=== PATIENT | female | born 1965 | race Hispanic/Latino ===

== ENCOUNTER → 2017-07-21 | Outpatient (CLI) | payer OTHER ==
[~2017-07-21] MED LIST: EXCEDRIN MIGRA1 EAC3 PO; LEVAQUIN500 MG PO; [UNRECOGNIZED DRUG - OTHER] PO
--- NOTE | 2017-07-21 16:38 | Diagnostic Imaging Report ---
PROCEDURE:US RETROPERITONEAL ( KIDNEY ). COMPARISON:None. INDICATIONS:UTI, Asymptomatic Microscopic Hematuria TECHNIQUE: Fernando-scale and color sonographic images of the bilateral kidneys and bladder where obtained in transverse and longitudinal planes. FINDINGS: RIGHT KIDNEY: 9.5 cm, cortex 1.2 cm Cysts: None Solid masses: None Stones: None Hydronephrosis: None Echogenicity: Normal LEFT KIDNEY: 9.7 cm, cortex 2.29 cm Cysts: None Solid masses: None Stones: None Hydronephrosis: None Echogenicity: Normal Bladder: No focal lesions. Bilateral ureteral jets identified. Incidental note is made of increase echogenicity of the visualized hepatic parenchyma CONCLUSION: 1. Unremarkable renal ultrasound. Bladder is unremarkable. 2. Hepatic steatosis. Ajit Melo M.D. Dictated by: Ajit Melo M.D. on 07/21/2017 at 16:39 Electronically approved by: Ajit Melo M.D. on 07/21/2017 at 16:39
== END ==
LOC: US 13:58
PROVIDERS: ATTEND Urology
DX: N39.0 Urinary tract infection, site not specified (principal); R31.9 Hematuria, unspecified
CPT/HCPCS: 76770

== ENCOUNTER → 2017-07-29 | Day surgery (SDC) | payer OTHER ==
[~2017-07-29] MED LIST changes: +CEFTRIAXONE SOD 1 GM VIAL ONE; +DEXAMETHASONE SOD PHOS INJ 4 MG/ML VIAL ONE; +IOPAMIDOL 610MG/1ML 300 MG/ML VIAL IV ONE; +LIDOCAINE HCL 2% LOCAL INJ 5 ML SDV VIAL INJ ONE; +ONDANSETRON HCL INJ 2 MG/ML VIAL ONE; +PROPOFOL IV EMULSION 10 MG/ML 20 ML VIAL ONE; +SCOPOLAMINE 1.5 MG PATCH ONE; +SEVOFLURANE INHAL SOLN 250 ML PEN BTL ONE
--- OUTSIDE RECORDS SUMMARY | 2017-07-29 05:11 | XMS REPORT ---
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 Allergies, Adverse Reactions, Alerts This patient has no known allergies or adverse reactions. Medications This patient has no known medications. Results Test Description Test Time Test Comments Text Results Atomic Results Result Comments US RENAL RETROPERITONEAL COMP [place] [address] Patient Name: JOSE REED V MR #: [id number] : 1965 Age/Sex: 51/F Req #: [id number] Adm Physician: Ordered by: MARIO MAGUIRE MD Report #: [id number] Location: Room/Bed: Procedure: [id number] US/US RENAL RETROPERITONEAL COMP Exam Date: 07/21/17 Exam Time: 1438 REPORT STATUS: Signed PROCEDURE : US RETROPERITONEAL ( KIDNEY ). COMPARISON: None. INDICATIONS: UTI, Asymptomatic Microscopic Hematuria TECHNIQUE: Fernando-scale and color sonographic images of the bilateral kidneys and bladder where obtained in transverse and longitudinal planes. FINDINGS: RIGHT KIDNEY: 9.5 cm, cortex 1.2 cm Cysts: None Solid masses: None Stones: None Hydronephrosis: None Echogenicity: Normal LEFT KIDNEY: 9.7 cm, cortex 2.29 cm Cysts: None Solid masses: None Stones: None Hydronephrosis: None Echogenicity: Normal Bladder: No focal lesions. Bilateral ureteral jets identified. Incidental note is made of increase echogenicity of the visualized hepatic parenchyma CONCLUSION: 1. Unremarkable renal ultrasound. Bladder is unremarkable. 2. Hepatic steatosis. Curt Melo M.D. Dictated by: Curt Melo M.D. on 07/21/2017 at 16:39 Electronically approved by: Curt Melo M.D. on 2017 at 16:39 Dictated By: CURT MELO MD 1639 Transcribed By: NOEL on 1639 COPY TO: MARIO MAGUIRE MD
--- NOTE | 2017-07-29 13:14 | Operative Report ---
DATE OF PROCEDURE: July 29, 2017 PREOPERATIVE DIAGNOSES 1. Multiple chronic urinary tract infections. 2. Microscopic hematuria. 3. Clinical signs and symptoms of interstitial cystitis. POSTOPERATIVE DIAGNOSES 1. Multiple chronic urinary tract infections. 2. Microscopic hematuria. 3. Clinical signs and symptoms of interstitial cystitis. 4. Urethral stricture disease. PROCEDURES 1. Cystourethroscopy with calibration and dilation of urethral stricture (entirely separate procedure for the diagnosis of urethral stricture disease). 2. Cystourethroscopy with hydrodistention (entirely separate procedure for the clinical signs and symptoms of interstitial cystitis without hematuria). 3. Cystourethroscopy with left ureteral catheterization and left retrograde pyelogram (entirely separate procedure for diagnosis of multiple chronic urinary tract infections). 4. Cystourethroscopy with right ureteral catheterization and right retrograde pyelogram (entirely separate procedure for diagnosis of multiple chronic urinary tract infections). 5. Supervision of fluoroscopy. 6. Interpretation of retrograde ureteropyelography. ANESTHESIA: General. ESTIMATED BLOOD LOSS: Minimal. COMPLICATIONS: None. INDICATIONS FOR PROCEDURE: Ms. Mc is a very pleasant, 51-year-old female who has had multiple chronic urinary tract infections as well as microscopic hematuria. She and I had a long discussion regarding the alternatives, risks and benefits, including doing nothing, cystoscopy, IVP, retrograde pyelogram or ultrasound due to the complicated nature, also the ruling out of interstitial cystitis. She voiced an understanding of the options and the alternatives, and she elected to proceed. PROCEDURE IN DETAIL: After informed consent was obtained, the patient was taken to the operating suite. She was placed supine on the operating table. She underwent general anesthesia by the anesthesia service. She was placed in the dorsal lithotomy position. She was sterilely prepped and draped in the standard fashion for cystoscopy. There was a grade-2 cystocele noted and normal-appearing vaginal mucosa. No masses. The urethra attempted to be catheterized with a 22.5-Vincentian cystoscope. This failed. The urethra was calibrated to 14 Vincentian. It was dilated to 24 Vincentian. The cystoscope was then reintroduced. Panendoscopy of the bladder revealed some squamous metaplasia. No tumors and no stones. Both ureteral orifices were in their normal anatomic location and position and were seen to efflux clear urine. Hydrodistention was performed, which revealed a capacity of 800 mL. No glomerulations. No Hunner ulcers. Bilateral retrograde pyelograms were performed, which were normal. The bladder was then drained. The patient was awakened from anesthesia and transported to the recovery room in excellent condition. SUPERVISION OF FLUOROSCOPY AND INTERPRETATION OF RETROGRADE PYELOGRAPHY: I was present throughout the entire procedure and supervised the use of fluoroscopy. There was no radiologist present. Attention was turned toward the left and right ureteral orifices, which were catheterized with an 8-Vincentian, cone-tip catheter in a retrograde fashion. Contrast was injected revealing delicate ureters and delicate pelvicaliceal systems. No evidence of filling defects. No evidence of hydronephrosis. IMPRESSION: Normal retrograde pyelograms. Job#: [id number] cc:SARA [address] DO
== END | disposition home or self-care (01) ==
LOC: OR 05:09
PROVIDERS: ATTEND Urology
DX: N39.0 Urinary tract infection, site not specified (principal); R31.0 Gross hematuria; N35.9 Urethral stricture, unspecified; N81.10 Cystocele, unspecified
CPT/HCPCS: 52281; 74420; 93005; C1758; J0696; J1100; J2001; J2405; Q9967

== ENCOUNTER 2020-04-28 18:38 | Emergency (ER) | payer OTHER ==
[~2020-04-28] VITALS: Ht 157.5 cm; Wt 59.0 kg
[~2020-04-28 18:38] MED LIST changes: -CEFTRIAXONE SOD 1 GM VIAL ONE; -DEXAMETHASONE SOD PHOS INJ 4 MG/ML VIAL ONE; -IOPAMIDOL 610MG/1ML 300 MG/ML VIAL IV ONE; -LIDOCAINE HCL 2% LOCAL INJ 5 ML SDV VIAL INJ ONE; -ONDANSETRON HCL INJ 2 MG/ML VIAL ONE; -PROPOFOL IV EMULSION 10 MG/ML 20 ML VIAL ONE; -SCOPOLAMINE 1.5 MG PATCH ONE; -SEVOFLURANE INHAL SOLN 250 ML PEN BTL ONE
[2020-04-28] MEDS ORDERED: KETOROLAC TROMETHAMINE 30 MG/ML VIAL IV STA (21:42)
[2020-04-28] MEDS ORDERED: SODIUM CHLORIDE 0.9% 1000ML 1,000 ML IV STA (21:42)
[2020-04-28] MEDS ORDERED: SODIUM CHLORIDE FLUSH 10 ML SYR INJ PRN (21:45)
[2020-04-28] MEDS ORDERED: SODIUM CHLORIDE 0.9% 50ML 50 ML ONE (22:09)
[2020-04-28] MEDS ORDERED: IOPAMIDOL 370 MG/ML 200 ML INFUS..BTL INJ ONE (22:09)
[2020-04-28] MEDS ORDERED: SODIUM CHLORIDE 0.9% 1000ML 1,000 ML ONE (22:11)
[2020-04-28] MEDS ORDERED: KETOROLAC TROMETHAMINE 30 MG/ML VIAL ONE (22:11)
[2020-04-28] MEDS ORDERED: CEFTRIAXONE SOD 1 GM/NS 50 ML 50 ML IV ONE ×2 (22:30→22:57)
[2020-04-28] MEDS ORDERED: CIPRO500 MG PO (23:31)
[2020-04-28] MEDS ORDERED: PREDNISONE20 MG PO (23:37)
[2020-04-28] MEDS ORDERED: METHYLPREDNISOLONE SOD SUCC 125 MG/2ML VIAL IV ONE (23:45)
[2020-04-28] MEDS ORDERED: METHYLPREDNISOLONE SOD SUCC 125 MG/2ML VIAL ONE (23:51)
== END 2020-04-28 23:59 | disposition home or self-care (01) ==
LOC: FSED 19:12
DX: N12 Tubulo-interstitial nephritis, not specified as acute or chronic (principal); R11.2 Nausea with vomiting, unspecified; Z87.891 Personal history of nicotine dependence
CPT/HCPCS: 74177; 80048; 80076; 81003; 85025; 87086; 99284; J0696; J1885; J2930; J7030; Q9967

== ENCOUNTER 2024-01-30 18:36 | Observation (INO) | payer OTHER ==
[2024-01-30] VITALS (7 sets, daily range): BP systolic 112–144; BP diastolic 52–85; PULSE 58–66; RESP 16–18; TEMP 97.8–98.4; O2SAT 100
[~2024-01-30] VITALS: Ht 157.5 cm; Wt 68.0 kg
[~2024-01-30 18:36] MED LIST changes: +CIPRO500 MG PO; +PREDNISONE20 MG PO
[2024-01-30 19:09] LABS: BASOPHILS # (AUTO) 0.1 (0.0-0.1); EOSINOPHILS # (AUTO) 0.2 (0.0-0.4); EOSINOPHILS % 2.1 % (0.0-6.0); HEMATOCRIT 42.1 % (34.2-44.1); HEMOGLOBIN 13.7 g/dL (12.0-16.0); MEAN CORPUSCULAR HEMOGLOBIN 30.2 pg (28-32); MEAN CORPUSCULAR HGB CONC 32.5 g/dL (31-35); MEAN CORPUSCULAR VOLUME 92.9 fL (81-99); MONOCYTES # (AUTO) 0.6 (0.2-0.8); MONOCYTES % 7.9 % (4.4-11.3); NEUTROPHILS # (AUTO) 4.4 (2.1-6.9); NEUTROPHILS % 60.9 % (38.7-80.0); PLATELET COUNT 198 x10e3/uL (140-360); RED BLOOD COUNT 4.53 x10e6/uL (3.6-5.1); RED CELL DISTRIBUTION WIDTH 11.9 % (11.7-14.4); WHITE BLOOD COUNT 7.22 x10e3/uL (4.8-10.8)
[2024-01-30] MEDS: ONDANSETRON HCL INJ 2MG/ML 2ML 2 MG/ML VIAL IV STA ×2 (19:24→21:14)
[2024-01-30 19:28] LABS: ALANINE AMINOTRANSFERASE 24 IU/L (0-55); ALBUMIN 4.3 g/dL (3.5-5.0); ALBUMIN/GLOBULIN RATIO 1.2 (0.8-2.0); ALKALINE PHOSPHATASE 94 IU/L (40-150); ANION GAP 16.7 mmol/L (8-16); BILIRUBIN,TOTAL 0.6 mg/dL (0.2-1.2); BLOOD UREA NITROGEN 23 mg/dL (7-26); BUN/CREATININE RATIO 25 (6-25); CALCIUM 9.6 mg/dL (8.4-10.2); CARBON DIOXIDE 20 mmol/L (22-29); CHLORIDE 108 mmol/L (98-107); CREATINE KINASE 114 IU/L (29-168); CREATININE, SERUM 0.92 mg/dL (0.57-1.11); EST GLOMERULAR FILTRATION RATE 71 ML/MIN (>=60); GLUCOSE 142 mg/dL (74-118); POTASSIUM 3.7 mmol/L (3.5-5.1); SODIUM 141 mmol/L (136-145)
[2024-01-30 19:35] LABS: TROPONIN I < 0.001 ng/mL (0-0.300)
[2024-01-30] MEDS: SODIUM CHLORIDE 0.9% 1000ML 1,000 ML IV ONE (21:13)
[2024-01-30] MEDS: KETOROLAC TROMETHAMINE 30 MG/ML VIAL IV STA (21:14)
[2024-01-30] MEDS ORDERED: KETOROLAC TROMETHAMINE 30 MG/ML VIAL ONE (21:14)
[2024-01-30] MEDS ORDERED: SODIUM CHLORIDE FLUSH 10 ML SYR INJ PRN (21:15)
[2024-01-30] MEDS ORDERED: SODIUM CHLORIDE 0.9% 100 ML ONE (22:02)
[2024-01-30] MEDS ORDERED: IOPAMIDOL 370 MG/ML 100 ML INFUS..BTL INJ ONE (22:02)
[2024-01-30] MEDS: SODIUM CHLORIDE 0.9% 1000ML 1,000 ML IV SCH (22:23)
[2024-01-30] MEDS ORDERED: NURTEC ODT75 MG (23:10)
[2024-01-30] MEDS ORDERED: PROPRANOLOL HCL80 MG PO (23:14)
[2024-01-30] MEDS ORDERED: CELEBREX200 MG PO (23:14)
[2024-01-31] VITALS (7 sets, daily range): BP systolic 105–116; BP diastolic 53–66; PULSE 58–66; RESP 16–18; TEMP 98–98.3; O2SAT 96–100
[2024-01-31] MEDS ORDERED: ONDANSETRON HCL INJ 2MG/ML 2ML 2 MG/ML VIAL IV PRN (01:00)
[2024-01-31 06:08] LABS: BASOPHILS % 0.5 % (0.0-1.0); EOSINOPHILS # (AUTO) 0.1 (0.0-0.4); HEMATOCRIT 38.1 % (34.2-44.1); HEMOGLOBIN 11.8 g/dL (12.0-16.0); LYMPHOCYTES # (AUTO) 1.8 (1.0-3.2); LYMPHOCYTES % 30.2 % (18.0-39.1); MEAN CORPUSCULAR HEMOGLOBIN 29.7 pg (28-32); MONOCYTES # (AUTO) 0.6 (0.2-0.8); MONOCYTES % 10.5 % (4.4-11.3); NEUTROPHILS # (AUTO) 3.4 (2.1-6.9); NEUTROPHILS % 57.5 % (38.7-80.0); PLATELET COUNT 170 x10e3/uL (140-360); RED BLOOD COUNT 3.97 x10e6/uL (3.6-5.1); RED CELL DISTRIBUTION WIDTH 11.9 % (11.7-14.4); WHITE BLOOD COUNT 5.89 x10e3/uL (4.8-10.8)
[2024-01-31 06:42] LABS: ALBUMIN 3.5 g/dL (3.5-5.0); ALBUMIN/GLOBULIN RATIO 1.3 (0.8-2.0); ANION GAP 13.9 mmol/L (8-16); BILIRUBIN,TOTAL 0.6 mg/dL (0.2-1.2); CALCIUM 8.7 mg/dL (8.4-10.2); CREATININE, SERUM 0.85 mg/dL (0.57-1.11); POTASSIUM 3.9 mmol/L (3.5-5.1); TOTAL PROTEIN 6.3 g/dL (6.5-8.1)
[2024-01-31 06:59] LABS: CHOL/HDL RATIO 3.7 (3.0-3.6)
[2024-01-31 07:07] LABS: TROPONIN I 0.001 ng/mL (0-0.300)
[2024-01-31] MEDS ORDERED: ZYRTEC10 MG PO (08:25)
[2024-01-31 13:37] LABS: TROPONIN I 0.012 ng/mL (0-0.300)
[2024-01-31] MEDS: ACETAMIN/BUTALBITAL/CAFFEINE TAB PO PRN (14:08)
== END 2024-01-31 17:08 | disposition left against medical advice (07) ==
LOC: ER 18:44 → ERHOLD 21:10 → MED/SURG2 21:56
PROVIDERS: ADMIT Internal Medicine; ATTEND Internal Medicine
DX: G43.909 Migraine, unspecified, not intractable, without status migrainosus (principal); R07.9 Chest pain, unspecified; Z53.29 Procedure and treatment not carried out because of patient's decision for other reasons; R11.10 Vomiting, unspecified; R42 Dizziness and giddiness; R94.31 Abnormal electrocardiogram [ECG] [EKG]; Z79.899 Other long term (current) drug therapy
CPT/HCPCS: 36415 ×2; 70496; 70498; 71275; 80053 ×2; 80061; 82550 ×2; 84484 ×2; 85025 ×2; 93005; 94799 ×2; 99284; G0378 ×2; J1885; J2405; J7030 ×2; J7050; Q9967